=== PATIENT | male | born 1950 | race African-American/Black ===

== ENCOUNTER 2020-01-01 23:03 | Emergency (ER) | payer OTHER | END 2020-01-01 23:45 | LOC: ERS 23:03 | DX: S05.71XA Avulsion of right eye, initial encounter (principal); D64.9 Anemia, unspecified; E11.9 Type 2 diabetes mellitus without complications; E78.5 Hyperlipidemia, unspecified; E78.00 Pure hypercholesterolemia, unspecified; I10 Essential (primary) hypertension; Z79.899 Other long term (current) drug therapy; Z79.82 Long term (current) use of aspirin; Z79.84 Long term (current) use of oral hypoglycemic drugs; X58.XXXA Exposure to other specified factors, initial encounter | CPT/HCPCS: 99283 ==